=== PATIENT | male | born 1965 | race Caucasian/White ===

== ENCOUNTER 2020-07-13 21:25 | Emergency (ER) | payer BC, OTHER ==
[~2020-07-13] VITALS: Ht 185.4 cm; Wt 92.5 kg
--- NOTE | 2020-07-13 22:09 | Emergency Department Note ---
History of Present Illnes History of Present Illness Chief Complaint: Extremity Trauma/Pain History of Present Illness This is a 54 year old male with a history of hypertension, who presents for evaluation of left shoulder pain. Patient states that he's had his left shoulder dislocated 3-4 times in his life, with the last episode being approximately one year ago, and he is exhibiting similar pain this evening, after pulling himself up into a tractor. Patient states that he used both arms to pull himself up into his tractor, and when he pulled himself up, he "felt a pop" in the left shoulder. He then used his left arm to turn the steering wheel counterclockwise, and he felt immediate pain. Patient states that he is sometimes able to maneuver the shoulder back into place, but he's been unsuccessful with this episode. He denies any left upper extremity pain, weakness, numbness, or tingling. He has not yet taken anything for the pain. Historian: Patient Arrival Mode: Car Medicine Tech Required: No Onset (how long ago): hour(s) (2) Location: left shoulder Quality: sharp, stabbing, spasm Radiation: Reports proximal (pain the the proximal humerus;); Denies neck Severity: moderate Onset quality: sudden Duration (how long): hour(s) (2) Timing of current episode: constant Progression: unchanged Chronicity: new Context: Reports recent illness (Pt was diagnosed with COVID 19 06/12/2020 and lost @ 20#. He has come off his blood pressure medication and his B/P has reportedly been normal, 120's/80's. 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 Any updates have been documented here. Past Medical History Recent Fever: No Clinical Suspicion of Infectio: No New/Unexplained Change in Ment: No Past Medical History: None Past Surgical History: None Social History Smoking Cessation: Never Smoker Alcohol Use: Occasional Any Illegal Drug Use: No TB Exposure/Symptoms: No Physically hurt or threatened: No Family History Family history of heart diseas: No Other Last Tetanus: uknown Any Pre-Existing Lines (PICC,: No Review of Systems Review of Systems Constitutional: Reports no symptoms EENTM: Reports no symptoms Cardiovascular: Reports no symptoms Respiratory: Reports no symptoms Gastrointestinal: Reports no symptoms Musculoskeletal: Reports as per HPI, Reports joint pain (left shoulder), Reports muscle pain Integumentary: Reports no symptoms Neurological: Reports no symptoms; Denies headache, Denies numbness, Denies tingling, Denies weakness Psychological: Reports no symptoms Hematological/Lymphatic: Reports no symptoms Review of other systems: All other systems negative Physical Exam Related Data Allergies: Coded Allergies: No Known Drug Allergies (Verified Allergy, Unknown, 07/13/20) Vital signs reviewed: Yes (patient's blood pressure is markedly elevated, likley due to pain. He states that his b/p was 120's/70's, yesterday. ) Physical Exam CONSTITUTIONAL Constitutional: Present well-developed, Present well-nourished; Absent distressed, Absent ill appearing HENT HENT: Present normocephalic, Present atraumatic, Present oropharynx clear/moist, Present nose normal HENT L/R: Present left ext ear normal, Present right ext ear normal EYES Eyes: Reports PERRL, Reports conjunctivae normal NECK PULMONARY Pulmonary: Present effort normal, Present breath sounds normal CARDIOVASCULAR Cardiovascular: Present regular rhythm, Present heart sounds normal, Present capillary refill normal, Present normal rate; Absent murmur GASTROINTESTINAL GENITOURINARY SKIN Skin: Present warm, Present dry; Absent rash MUSCULOSKELETAL Musculoskeletal: Present tenderness (ttp of left AC joint and upper bicep tendon; pt able to abduct the LUE to 90 degrees, without crepitus; both scapula are symmetric; left radial pulse strong and intact; ); Absent ROM normal NEUROLOGICAL Neurological: Present alert, Present oriented x 3, Present no gross motor or sensory deficits; Absent cranial nerve deficit, Absent sensory deficit, Absent weakness PSYCHOLOGICAL Psychological: Present mood/affect normal, Present judgement normal Results Imaging Imaging results reviewed: Yes Impressions [place] [address] Patient Name: ANDREWS MCDERMOTT JR MR #: [id number] : 1965 Age/Sex: 54/M Req #: [id number] [facility] Physician: Ordered by: BECCA ZIMMER MD Report #: [id number] Location: [facility] Room/Bed: Procedure: [id number] HOPD/SHOULDER 2+VW LT -HOPD Exam Date: 07/13/20 Exam Time: 2219 REPORT STATUS: Signed X-ray left shoulder 3 views HISTORY: Pain. COMPARISON: None available. FINDINGS: Bones: No acute displaced fracture. Osseous alignment is within normal limits. Joints: The joint spaces are well-maintained. Soft tissues: The soft tissues appear unremarkable. IMPRESSION: No acute radiographic abnormality. Signed by: Ze Aldana DO on 07/14/2020 12:01 AM Dictated By: ZE ALDANA DO 19 Transcribed By: LAVERNE on 07/14/202219 COPY TO: BECCA ZIMMER MD~ Diagnostics Tests Diagnostic test(s) reviewed: Yes Assessment & Plan Medical Decision Making MDM - Apply ice to the left shoulder, for 15-20 minutes, really throughout the day for the next several days, to help with any pain or swelling - Contact orthopedics tomorrow, for an appointment to further evaluate your left shoulder pain. - He may take Ibuprofen 200 mg3 tablets together every 6 hours as needed for pain. He may take Tylenol with codeine, as needed, for breakthrough pain. Do not take this medication and drive or operate machinery. Increase fluid and fiber intake, as codeine can cause constipation. - Keep your left upper extremity in the Sling, as much as possible, until follow-up with Orthopedics. - Take the disc, containing the x-rays from your ER visit tonight, with you to see the Orthopedist. - Monitor your blood pressure twice daily, and resume your blood pressure meds, if it remains elevated, and follow-up with your Supervisor Chlorine Liquefaction. Reassessment Reassessment time: 23:15 Reassessment - Pt appears comfortable, and talking on cell phone. [place] has helped the pain and it is making him a bit sleepy. He is using the LUE to hold his phone up to his ear to talk. Explained to patient that there is apparently an issue with the transmission of the images to radiology, and lana Mcdonough, is working with IT to correct the problem. 00:05 - Xray results are finally back, and there is no dislocation. Assessment & Plan Final Impression: (1) Shoulder pain, acute (2) Elevated blood pressure reading Depart Disposition: HOME, SELF-USP Meds Active Scripts Acetaminophen With Codeine (TYLENOL WITH CODEINE #3 TABLET) 1 Each Tablet, 1-2 TAB PO Q6H for pain, #20 TAB 0 Refills DO NOT take and drive or operate machinery. Prov:BECCA ZIMMER MD 07/14/20 BECCA ZIMMER MD Jul 13, 2020 22:09
[2020-07-13] MEDS ORDERED: HYDROCODONE/APAP 5MG-325MG TAB PO ONE (22:15)
--- NOTE | 2020-07-13 22:37 | NUR ---
NOTED PT HOLD HIS CELL PHONE UP WITH LUE WITHOUT DIFF. TALKING
[2020-07-13] MEDS ORDERED: HYDROCODONE/APAP 5MG-325MG TAB ONE (22:38)
--- NOTE | 2020-07-13 22:39 | NUR ---
PT REFUSED 2ND PILL OF NORCO. INFORMED
--- OUTSIDE RECORDS SUMMARY | 2020-07-13 23:33 | XMS REPORT | Continuity of Care Document ---
Author Author [facility] t Organization [facility] Address [address] [place] [address] Phone Unavailable Care Team Providers Care Corporate Planning Manager Name Role Phone Ravinder GALLEGO, Feliciano Giang PCP Srinivasan GALLEGO, Adrian Dodd Attphys Payers Payer Name Policy Type Policy Number Effective Date Expiration Date S ourbaljeet BCBSBCBS CHOICE PPO/FEDERAL EMPL PPOxxxxxxxxxxxx2017-Pre sentPPO xxxxxxxxxxxx 2017 00:00:00 Wilton Hopper Problems This patient has no known problems. Allergies, Adverse Reactions, Alerts This patient has no known allergies or adverse reactions. Social History Social Habit Start Date Stop Date Quantity Comments Source Sex Assigned At [facility] Alcohol intake 2020-06-21 00:00:00 2020-06-21 00:00:00 Wilton Hopper Medications Ordered Medication Name Filled Medication Name Start Date Stop Da te Current Medication? Ordering Clinician Indication Dosage Frequency Signature (SIG) Comments Components Source albuterol (ACCUNEB) 2.5 mg /3 mL (0.083 %) nebulizer solutio n 2020-06-21 00:00:00 Yes Wilton Hopper azithromycin (ZITHROMAX) 250 MG tablet 2020-06-18 00:00:00 Yes Take by mouth. Wilton Hopper Symbicort 160-4.5 mcg/actuation inhaler 2020-06-18 00:00:00 José Miguel Hopper methylPREDNISolone (MEDROL DOSEPAK) 4 mg tablet 2020-06-18 00:00 :00 Yes Wilton harden Vital Signs Vital Name Observation Time Observation Value Comments Source Systolic blood pressure 2020-06-21 15:05:53 136 mm[Hg] Wilton Hopper Diastolic blood pressure 2020-06-21 15:05:53 83 mm[Hg] Wilton Hopper Heart rate 2020-06-21 15:05:53 84 /min Wilton Hopper Body temperature 2020-06-21 15:05:53 37.39 [place] Ho[place] Oxygen saturation in Arterial blood by Pulse oximetry 06-21 15:05:53 97 /min Wilton Hopper Body height 2020-06-21 12:55:00 185.4 cm Wilton Hopper Body weight 2020-06-21 12:55:00 96.163 kg Wilton Hopper BMI 2020-06-21 12:55:00 27.97 kg/m2 Wilton Hopper Respiratory rate 2020-06-21 12:53:02 20 /min [place] [facility] Procedures Procedure Date / Time Performed Performing Clinician Sourc e XR CHEST 2 VW 2020-06-21 13:45:40 Tyree Mckenzie ECG 12-LEAD 2020-06-21 13:32:12 Tyree Mckenzie COVID-19 QUALITATIVE PCR 2020-06-21 13:26:00 Tyree Mckenzie INFLUENZA ANTIGEN TEST, REFLEX NEGATIVE TO RPP 2020-06-21 13 :26:00 Tyree Mckenzie RESPIRATORY PATHOGEN PANEL 2020-06-21 13:26:00 Tyree Mckenzie COMPREHENSIVE METABOLIC PANEL 2020-06-21 13:26:00 Tyree Mckenzie HC COMPLETE BLD COUNT W/AUTO DIFF 2020-06-21 13:26:00 Jessica Mckenzie ESTIMATED GFR 2020-06-21 13:26:00 Tyree Mckenzie ECG ED PRELIMINARY INTERPRETATION 2020-06-21 12:51:49 Jessica Mckenzie Plan of Care Planned Activity Planned Date Details Comments Source Future Scheduled Test 2020-07-27 00:00:00 INFLUENZA VACCINE [code = INFLUENZA VACCINE] Wilton Hopper Future Scheduled Test 2014 00:00:00 COLONOSCOPY SCREEN ING [code = COLONOSCOPY SCREENING] Wilton Hopper Future Scheduled Test 2014 00:00:00 SHINGLES VACCINES (#1) [code = SHINGLES VACCINES (#1)] Wilton Hopper Encounters Start Date/Time End Date/Time [facility] Source 2020-06-21 00:00:00 2020-06-21 00:00:00 Emergency TYREE MCKENZIE [facility] 06Riri [id number] Wilton Hopper Results Test Description Test Time Test Comments Results Result Comments Source Respiratory pathogen panel 2020-06-21 22:25:04 Test Item Adenovirus PCR (test code = 7092) Not Detected Specimen InformationSpecimen Source: NasopharyngealSpecimen Site: Right Coronavirus HKU1 PCR (test code = 7093) Not Detected Coronavirus NL63 PCR (test code = 7094) Not Detected Coronavirus 229E PCR (test code = 7095) Not Detected Coronavirus OC43 PCR (test code = 7096) Not Detected Human metapneumovirus PCR (test code = 7097) Not Detected Human rhinovirus/enterovirus PCR (test code = 7098) Not Detected Influenza A PCR (test code = 7099) Not Detected Influenza A/H1 PCR (test code = 7100) Not Reported Influenza A/H3 PCR (test code = 7102) Not Reported Influenza A/H1-2009 PCR (test code = 7101) Not Reported Influenza B PCR (test code = 7104) Not Detected Parainfluenza virus 1 PCR (test code = 7105) Not Detected Parainfluenza virus 2 PCR (test code = 7106) Not Detected Parainfluenza virus 3 PCR (test code = 7107) Not Detected Parainfluenza virus 4 PCR (test code = 7108) Not Detected Respiratory syncytial virus PCR (test code = 7109) Not Detected Bordetella pertussis PCR (test code = 4216864) Not Detected Bordetella parapertussis PCR (test code = 7916646) Not Detected Chlamydia pneumoniae PCR (test code = 3753) Not Detected Mycoplasma pneumoniae PCR (test code = 7110) Not Detected Influenza A no sub type PCR (test code = 7127) Not Reported Wilton GomezistInfluenza antigen test, reflex negative to [id number] 22:23:41* Test Item Value Reference Range Interpretation Comments Influenza antigen (test code = 88874-3) Negative for Influenza A/B antigen. Specimen InformationSpecimen Source: NasopharyngealSpecimen Site: Right Wilton HopperCOVID-19 qualitative [id number] 21:42:18* Test Item Value Reference Range Interpretation Comments Interpretation (test code = 8886992) Positive results are indicative of active infection with 2019-nCoV but do not rule out bacterial infection or coinfection with other viruses. The agent detected may not be the definite cause of disease. COVID-19 qualitative PCR result (test code = 47409-2) Detected Not-Detected A COVID-19 qualitative PCR (test code = 7070) See link below for P DF Lab Report Lab Interpretation (test code = 03162-3) [facility]normal [facility] [id number] 15:11:42* Test Item Value Reference Range Interpretation Comments Ventricular rate (test code = 253) 90 Atrial rate (test code = 255) 90 TN interval (test code = 266) 154 QRSD interval (test code = 260) 80 QT interval (test code = 264) 358 QTC interval (test code = 265) 437 P axis 1 (test code = 267) 46 QRS axis 1 (test code = 268) -16 T wave axis (test code = 270) 30 EKG impression (test code = 273) Normal sinus rhythm-P ossible Left atrial enlargement-Borderline ECG-No previous ECGs available- [facility] Chest 2 [id number] 14:01:04Hm Interface, Radiology Results Incoming - 06/21/2020 2:04 PM CDTEXAMINATION: XR CHEST 2 VWCLINICAL HISTORY: eval for pna coughCOMPARISON: None.FINDINGS:Two views of the chest demonstrate normal cardiomediastinal silhouette. Pulmonary vasculature is within normal limits.Bilateral parahilar reticulations are seen, suggestive of individual pneumonitis. No consolidation or pleural effusion is seen. 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.[id number] [facility]Com[facility] [id number] 13:55:12* Test Item Value Reference Range Interpretation Comments Sodium (test code = 2951-2) 135 135- 148 mEq/L Potassium (test code = 2823-3) 4.0 3.5- 5.0 mEq/L Chloride (test code = 2075-0) 99 98- 112 mEq/L CO2 (test code = 2027-9) 24 24- 31 mEq/L Anion gap (test code = 34728-3) 12@ANIO 7- 15 mEq/L BUN (test code = 3094-0) 16 mg/dL 6-20 Creatinine (test code = 2160-0) 0.90 mg/dL 0.7-1.2 Glucose (test code = 2345-7) 117 mg/dL 65-99 H Calcium (test code = 57081-9) 9.5 mg/dL 8.3-10.2 Protein (test code = 2885-2) 6.9 g/dL 6.3-8.3 -[place] 4.6- 7.0 g/dL1 week 4.4-7.6 g/dL7 months-1year 5.1-7.3 g/dL1-2 years 5.6-7.5 g/dL>3 years 6.0-8.0 g/iC04-657 6.3-8.3 g/dL Albumin (test code = 1751-7) 4.1 g/dL 3.5-5 A/G ratio (test code = 1759-0) 1.5 0.7-3.8 Alkaline phosphatase (test code = 6768-6) 51 U/L 40-129 AST (test code = 1920-8) 25 U/L 10-50 ALT (test code = 1742-6) 44 U/L 5-50 Total bilirubin (test code = 1974-2) 0.4 mg/dL 0-1.2 Lab Interpretation (test code = 34781-7) Abnormal Wilton GomezistEstimated [id number] 13:55:11* Test Item Value Reference Range Interpretation Comments Estimated GFR (test code = 5488) >=90 mL/min/1.73 m2 Catergory Units InterpretationG1 >=90 Normal or highG2 60-89 Mildly rhzkkrgsxN9q 45-59 Mildly to moderately evqcnaritL9d 30-44 Moderately to severely decreasedG4 15-29 Severely decreasedG5 <15 Kidney failureThe eGFR was calculated using the Chronic Kidney Disease Epidemiology Collaboration (CKD-EPI) equation. Interpretation is based on recommendations of the National Kidney Foundation-Kidney Disease Outcomes Quality Initiative (NKF-KDOQI) published in 2014. [facility] with platelet and [id number] 13:42:40* Test Item Value Reference Range Interpretation Comments WBC (test code = 95196-7) 10.48 4.50- 11.00 k/uL RBC (test code = 59012-6) 4.62 m/uL 4.4-6 HGB (test code = 718-7) 13.3 g/dL 14-18 L HCT (test code = 4544-3) 40.1 % 41-51 L MCV (test code = 787-2) 86.8 fL 82-100 MCH (test code = 785-6) 28.8 pg 27-34 MCHC (test code = 786-4) 33.2 g/dL 31-37 RDW - SD (test code = 74833-7) 40.1 fL 37-55 MPV (test code = 45578-3) 9.7 fL 8.8-13.2 Platelet count (test code = 07183-5) 249 150- 400 k/uL Nucleated RBC (test code = 55599-4) 0.00 /100 WBC Neutrophils (test code = 11674-2) 86.5 % 39-69 H Lymphocytes (test code = 53081-5) 5.3 % 25-45 L Monocytes (test code = 03663-2) 7.6 % 0-10 Eosinophils (test code = 11113-1) 0.0 % 0-5 Basophils (test code = 71518-2) 0.1 % 0-1 Lab Interpretation (test code = 43211-7) Abnormal [facility] ED Preliminary Interpretation - Not an [id number] 12:51:49Tyree Mckenzie Jr., MD 06/21/2020 2:57 [facility] [place] Preliminary Interpretation - Not an OrderPerformed by: Tyree Mckenzie Jr., MDAuthorized by: Tyree Mckenzie Jr., MD ECG reviewed by ED Physician in the absence of a float nurse: yes (2910) Interpretation: Interpretation: non-specific Rate: ECG rate: 90 ECG rate assessment: normal Rhythm: Rhythm: sinus rhythm Ectopy: Ectopy: none QRS: QRS axis: Left QRS intervals: NormalConduction: Conduction: normal ST segments: ST segments: NormalT waves: T waves: normal [facility] Centerist
--- OUTSIDE RECORDS SUMMARY | 2020-07-13 23:33 | XMS REPORT | Clinical Summary ---
Author Author [facility] Organization [facility] Address Unknown Phone Unavailable Care Team Providers Care [employer] Access[employer] Salesperson Name Role Phone Rahat Castellon MD PCP Allergies No Known Allergies Medications End Date Status Medication Sig Dispensed Refills Start Date Active albuterol (ACCUNEB) 2.5 0 mg /3 mL (0.083 %) 0 nebulizer solution Active azithromycin (ZITHROMAX) Take by 0 06/18 250 MG tablet mouth. 0 Active Symbicort 160-4.5 0 mcg/actuation inhaler 0 Active methylPREDNISolone 0 (MEDROL DOSEPAK) 4 mg 0 tablet Active Problems Not on file Encounters Care Team Description Date Type Specialty Srinivasan, Yousif Campbell Jr., MD Suspected 2019 Novel Coronavirus Infecti on (Primary Dx); Cough; Fever, unspecified fever cause 06/21/2020 Emergency Emergency Medicine after 07/13/2019 Social History Date Tobacco Use Types Packs/Day Years Used Never Assessed Drinks/Week oz/Week Comments Alcohol Use Not Asked Sex Assigned at Date Recorded Not on file Industry Job Start Date Occupation Not on file Not on file Not on file Travel End Travel History Travel Start No recent travel history available. Last Filed Vital Signs Reading Time Taken Comments Vital Sign 136/83 06/21/2020 3:05 PM CDT Blood Pressure 84 06/21/2020 3:05 PM CDT Pulse 37.4 C (99.3 F) 06/21/2020 3:05 PM CDT Temperature 20 06/21/2020 12:53 PM CDT Respiratory Rate 97% 06/21/2020 3:05 PM CDT Oxygen Saturation - - Inhaled Oxygen Concentration 96.2 kg (212 lb) 06/21/2020 12:55 PM CDT Weight 185.4 cm (6' 1") 06/21/2020 12:55 PM CDT Height 27.97 06/21/2020 12:55 PM CDT Body Mass Index Plan of Treatment Health Maintenance Due Date Last Done Comments COLONOSCOPY SCREENING 2014 SHINGLES VACCINES (#1) 2014 INFLUENZA VACCINE 07/27/2020 Procedures Comments Procedure Name Priority Date/Time Associated Diag nosis XR CHEST 2 VW STAT 06/21/2020 1:45 PM CDT ECG 12-LEAD STAT 06/21/2020 1:32 PM CDT ESTIMATED GFR STAT 06/21/2020 1:26 PM CDT HC COMPLETE BLD COUNT STAT 06/21/2020 W/AUTO DIFF 1:26 PM CDT COMPREHENSIVE METABOLIC STAT 06/21/2020 PANEL 1:26 PM CDT RESPIRATORY PATHOGEN Routine 06/21/2020 PANEL 1:26 PM CDT INFLUENZA ANTIGEN TEST, Routine 06/21/2020 REFLEX NEGATIVE TO RPP 1:26 PM CDT COVID-19 QUALITATIVE PCR STAT 06/21/2020 1:26 PM CDT ECG ED PRELIMINARY Routine 06/21/2020 INTERPRETATION 12:51 PM CDT after 07/13/2019 Results * XR Chest 2 Vw (06/21/2020 1:45 PM CDT) Specimen Narrative Performed At EXAMINATION: XR CHEST 2 VW [facility] CLINICAL HISTORY: eval for pna cough COMPARISON: None. FINDINGS: Two views of the chest demonstrate norm al cardiomediastinal silhouette. Pulmonary vasculature is within normal limits. Bilateral parahilar reticulations are s een, suggestive of individual pneumonitis. No consolidation or pleura l effusion is seen. There is no evidence of pneumothorax. Regional osseous structures is unremark able. 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 [id number] Procedure Note Hm Interface, Radiology Results Incoming - 06/21/2020 2:04 PM CDT EXAMINATION: XR CHEST 2 VW CLINICAL HISTORY: eval for pna cough COMPARISON: None. FINDINGS: Two views of the chest demonstrate normal cardiomediastinal silhouette. Pulmonary vasculature is within normal limits. Bilateral parahilar reticulations are seen, suggestive of individual pneumonitis. No consolidation or pleural effusion is seen. There is no evidence of pneumothorax. Regional osseous structures is unremarkable. IMPRESSION: Finding suggesting of bilateral parahilar interstitial pneumonitis. [id number] Performing Organization Address [facility] one Number [facility] [address] [place] [address] * ECG 12 lead (06/21/2020 1:32 PM CDT) Ventricular 90 [facility] MUSE rate Atrial rate 90 [facility] M[facility] ME interval 154 [facility] QRSD interval 80 [facility] QT interval 358 [facility] QTC interval 437 [facility] P axis 1 46 [facility] M[facility] QRS axis 1 -16 [facility] T wave axis 30 [facility] EKG impression Normal sinus rhythm-Possible [facility] MUSE Left atrial enlargement-Borderline ECG-No previous ECGs available- Specimen Narrative Performed At This result has an attachment that is n ot available. Performing Organization Address [facility] one Number [facility] MUSE [address] [place] [address] * Respiratory pathogen panel (06/21/2020 1:26 PM CDT) Pathologist [facility] Adenovirus PCR Not Detected [place] Comment: [facility] Specimen Information HOSPITAL Specimen Source: Nasopharyngeal Specimen Site: Right Coronavirus Not Detected [place] HKU1 [facility] Coronavirus Not Detected [place] NL63 PCR [facility] Coronavirus Not Detected [place] 229E PCR [facility] Coronavirus Not Detected [place] OC43 PCR [facility] Human Not Detected [place] metapneumovirus [facility] PCR HOSPITAL Human Not Detected [place] rhinovirus/ente [facility] rovirus PCR HOSPITAL Influenza A PCR Not Detected [facility] Influenza A/H1 Not Reported [place] PCR [facility] Influenza A/H3 Not Reported [place] PCR [facility] Influenza Not Reported [place] A/H1-2009 PCR [facility] Influenza B PCR Not Detected [facility] Parainfluenza Not Detected [place] virus 1 PCR [facility] Parainfluenza Not Detected [place] virus 2 PCR [facility] Parainfluenza Not Detected [place] virus 3 PCR [facility] Parainfluenza Not Detected [place] virus 4 PCR [facility] Respiratory Not Detected [place] syncytial virus [facility] Bordetella Not Detected [place] pertussis PCR [facility] Bordetella Not Detected [place] parapertussis [facility] PCR [facility] Chlamydia Not Detected [place] pneumoniae PCR [facility] Mycoplasma Not Detected [place] pneumoniae PCR [facility] Influenza A no Not Reported [place] sub type PCR [facility] Specimen Nasopharyngeal - Right Performing Organization Address City/[facility]/Zipcode Ph one Number [facility] DEPARTMENT OF [address] [place] [address] PATHOLOGY AND GENOMIC MEDICINE [address] * Estimated GFR (06/21/2020 1:26 PM CDT) Pathologist [facility] Estimated GFR >=90 mL/min/1.73 m2 [place] Comment: [facility] CLEAR [facility] Interpretation G1 >=90 Normal or high G2 60-89 Mildly decreased G3a 45-59 Mildly to moderately decreased G3b 30-44 Moderately to severely decreased G4 15-29 Severely decreased G5 <15 Kidney failure The eGFR was calculated using the Chronic Kidney Disease Epidemiology Collaboration (CKD-EPI) equation. Interpretation is based on recommendations of the National Kidney Foundation-Kidney Disease Outcomes Quality Initiative (NKF-KDOQI) published in 2014. Specimen Performing Organization Address City/[facility] Ph one Number [facility] [place] [id number] [place] [address] [place] [address] PATHOLOGY AND GENOMIC MEDICINE [address] * Influenza antigen test, reflex negative to RPP (06/21/2020 1:26 PM CDT) [facility] Influenza Negative for Influenza A/B [place] antigen antigen. [facility] CLEAR Comment: [facility] Specimen Information Specimen Source: Nasopharyngeal Specimen Site: Right Specimen Nasopharyngeal - Right Performing Organization Address City/[facility] Ph one Number [facility] [place] [id number] [place] [address] [place] [address] PATHOLOGY AND GENOMIC MEDICINE [facility] [id number] [place] [address] * COVID-19 qualitative PCR (06/21/2020 1:26 PM CDT) Pathologist [facility] Interpretation Positive results are NÚÑEZ indicative of active infection [facility] with 2019-nCoV but do not rule HOSPITAL out bacterial infection or coinfection with other viruses. The agent detected may not be the definite cause of disease. COVID-19 Detected (A) Not-Detected [place] qualitative PCR [facility] COVID-19 See link below for PDF Lab [place] qualitative PCR ReportComment: Case Number: [facility] [id number] HOSPITAL Specimen Nasopharyngeal swab Performing Organization Address [facility] Ph one Number [facility] DEPARTMENT OF [address] [place] [address] PATHOLOGY AND GENOMIC MEDICINE [facility] [address] [place] [address] [facility] * CBC with platelet and differential (06/21/2020 1:26 PM CDT) WBC 10.48 4.50 - 11.00 k/uL [facility] RBC 4.62 4.40 - 6.00 m/uL [facility] HGB 13.3 (L) 14.0 - 18.0 g/dL [facility] HCT 40.1 (L) 41.0 - 51.0 % [facility] MCV 86.8 82.0 - 100.0 fL [facility] MCH 28.8 27.0 - 34.0 pg [facility] MCHC 33.2 31.0 - 37.0 g/dL [facility] RDW - SD 40.1 37.0 - 55.0 fL [facility] MPV 9.7 8.8 - 13.2 fL [facility] Platelet count 249 150 - 400 k/uL [facility] Nucleated RBC 0.00 /100 WBC [facility] Neutrophils 86.5 (H) 39.0 - 69.0 % [facility] Lymphocytes 5.3 (L) 25.0 - 45.0 % [facility] Monocytes 7.6 0.0 - 10.0 % [facility] Eosinophils 0.0 0.0 - 5.0 % [facility] Basophils 0.1 0.0 - 1.0 % [facility] Specimen Blood Performing Organization Address [facility] Ph one Number [facility] [place] [address] [place], [place] [address] PATHOLOGY AND GENOMIC MEDICINE [facility] [id number] [place] [address] * Comprehensive metabolic panel (06/21/2020 1:26 PM CDT) Sodium 135 135 - 148 mEq/L [facility] Potassium 4.0 3.5 - 5.0 mEq/L [facility] Chloride 99 98 - 112 mEq/L [facility] CO2 24 24 - 31 mEq/L [facility] Anion gap 12@ANIO 7 - 15 mEq/L [facility] BUN 16 6 - 20 mg/dL [facility] Creatinine 0.90 0.70 - 1.20 mg/dL [facility] Glucose 117 (H) 65 - 99 mg/dL [facility] Calcium 9.5 8.3 - 10.2 mg/dL [facility] Protein 6.9 6.3 - 8.3 g/dL [place] Comment: [facility] 4.6-7.0 g/dL 1 week 4.4-7.6 g/dL 7 months-1year 5.1-7.3 g/dL 1-2 years 5.6-7.5 g/dL >3 years 6.0-8.0 g/dL 18-150 6.3-8.3 g/dL Albumin 4.1 3.5 - 5.0 g/dL [facility] A/G ratio 1.5 0.7 - 3.8 [facility] Alkaline 51 40 - 129 U/L [place] phosphatase [facility] AST 25 10 - 50 U/L [facility] ALT 44 5 - 50 U/L [facility] Total bilirubin 0.4 0.0 - 1.2 mg/dL [facility] Specimen Blood Performing Organization Address City/State/Zipcode Ph one Number [facility] [place] [address] [place], [place] [address] PATHOLOGY AND GENOMIC MEDICINE [facility] [address] [place] [id number] [facility] * ECG ED Preliminary Interpretation - Not an Order (06/21/2020 12:51 PM CDT) Narrative Performed At Yousif Mattson Jr., MD 2019 2:57 PM ECG ED Preliminary Interpretation - Not an Order Performed by: Yousif Mattson Jr., MD Authorized by: Yousif Mattson Jr., MD ECG reviewed by ED Physician in the abs ence of a lead housekeeper: yes ([id number]) Interpretation: Interpretation: non-specific Rate: ECG rate: 90 ECG rate assessment: normal Rhythm: Rhythm: sinus rhythm Ectopy: Ectopy: none QRS: QRS axis: Left QRS intervals: Normal Conduction: Conduction: normal ST segments: ST segments: Normal T waves: T waves: normal after 07/13/2019 Additional Health Concerns Resolved Time Infection Noted Time Coronavirus COVID-19 (Confirmed) 06/21/2020 9:42 PM CDT Insurance Type Payer Benefit Subscriber ID Effective Phone Address Plan / Dates Group PPO BCBS BCBS xxxxxxxxxxxx [id number] CHOICE resent PPO/VALENTINE ECKERT PPO Advance Directives For more information, please contact: [phone] 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
--- NOTE | 2020-07-13 23:51 | NUR ---
AWAITING XR RESULTS
--- NOTE | 2020-07-14 00:05 | Diagnostic Imaging Report ---
X-ray left shoulder 3 views HISTORY: Pain. COMPARISON: None available. FINDINGS: Bones: No acute displaced fracture. Osseous alignment is within normal limits. Joints: The joint spaces are well-maintained. Soft tissues: The soft tissues appear unremarkable. IMPRESSION: No acute radiographic abnormality. Signed by: Ze Aldana DO on 07/14/2020 12:01 AM
--- NOTE | 2020-07-14 00:10 | NUR ---
IN GIVING PT RESULTS ON TESTING. PT KEEPS HIS PHONE TO L-EAR CONSTANTLY WHILE TALKING WITH MD.
[2020-07-14] MEDS ORDERED: TYLENOL WITH C1 EACH PO (00:20)
[2020-07-14 00:26] VITALS: BP 178/102
== END 2020-07-14 00:32 | disposition home or self-care (01) ==
LOC: FSED 21:44
DX: M25.512 Pain in left shoulder (principal); R03.0 Elevated blood-pressure reading, without diagnosis of hypertension
CPT/HCPCS: 99283